=== PATIENT | male | born 1945 | race Caucasian/White ===

== ENCOUNTER → 2023-12-28 14:07 | Outpatient (REF) | payer OTHER, SELFPAY | LOC: RAD 14:07 | PROVIDERS: ATTENDING PHYSICIAN Surgery Vascular Surgery | DX: I70.222 Atherosclerosis of native arteries of extremities with rest pain, left leg (principal); I77.9 Disorder of arteries and arterioles, unspecified | CPT/HCPCS: 93922; 93925; 93970 ==

== ENCOUNTER 2024-01-05 06:13 | Day surgery (SDC) | payer OTHER, SELFPAY ==
[2024-01-05] VITALS (17 sets, daily range): BP systolic 122–186; BP diastolic 72–109; BMI 28.1
[2024-01-05 07:07] LABS: Hematocrit 44.4 % (39.0-52.0); Hemoglobin 14.3 g/dL (13.0-18.0); Mean Corp Hgb Conc. 32.2 g/dL (33.0-37.0); Mean Corpuscular Hgb 29.2 pg (27.0-31.0); Mean Corpuscular Volume 90.6 fL (80.0-94.0); Platelet Count 148 10^3/uL (130-400); Red Cell Dist. Width 14.6 % (11.5-14.5); White Blood Cell Count 6.5 10^3/uL (4.8-10.8)
[2024-01-05 07:19] LABS: Blood Urea Nitrogen 26 mg/dl (9-20); Carbon Dioxide 27 mmol/L (22-30); Chloride 110 mmol/L (98-107); Estimated Creatinine Clearance 42 ml/min; Glucose 94 mg/dl (70-99); INR 1.21; PT 15.2 Sec (11.4-14.6); Potassium 4.5 mmol/L (3.5-5.1); Sodium 144 mmol/L (135-145); eGFR 56.23
[2024-01-05 07:20] LABS: APTT 30.9 Sec (23.4-35.0)
--- NOTE | 2024-01-05 07:37 | W.SUR.PREOP ---
Pre-Operative Surgical Note
-
I have examined this patient prior to the performance of the scheduled procedure.
The patient's condition is unchanged from the time of the current History and
Physical and the patient is able to undergo the scheduled procedure.
--- NOTE | 2024-01-05 11:41 | SUR.PHASEI ---
1125: MD Min made aware of patients slight confusion and bazar behavior. No concerns at this time and gave RN okay to move patient back to Cath area
--- NOTE | 2024-01-05 12:31 | OR.RPT ---
Operative Report
Operative Report
Date of Operation: 01/05/2024
Pre Op Diagnosis: Critical limb threatening ischemia, left lower extremity
Post Op Diagnosis: Critical limb threatening ischemia, left lower extremity
Procedure:
1.) Intravascular lithotripsy to left posterior tibial artery (3 mm x 80 mm E8 Shockwave balloon)
2.) Intravascular lithotripsy to left peroneal artery (3 mm x 80 mm E8 Shockwave balloon)
3.) Balloon angioplasty to left posterior tibial artery (3 mm x 200 mm)
4.) Drug-coated balloon angioplasty to left superficial femoral artery (6 mm x 150 mm Lutonix)
5.) Drug-coated balloon angioplasty to left above-knee popliteal artery (5 mm x 120 mm Lutonix)
6.) Stenting of left superficial femoral artery (6 mm x 100 mm LifeStent)
7.) Diagnostic left lower extremity arteriogram
8.) Ultrasound-guided percutaneous ANTEGRADE access to the left common femoral artery
Surgeon: Osmin Golden III, MD
Anesthesia: Sedation with local
Fluoroscopy:
42 min
69 mGy
15.63 Gy.cm2
Complications: None
Estimated Blood Loss: 30 cc
History and Indications for Procedure: 78-year-old male with critical limb threatening ischemia of his left lower extremity manifested by nonhealing toe wound.
Procedure in Detail: Gerardo Mendoza was correctly identified and placed supine on the operating table. After adequate induction of anesthesia the bilateral groins were prepped and draped in the usual sterile fashion. A timeout was performed with
the nursing and anesthesia staff confirming the patient's identity as well as the nature and laterality of the procedure.
The left common femoral artery was identified under ultrasound guidance. The artery was patent. The superior and inferior aspects of the femoral head were identified with radiographic guidance and marked at the skin level. The proposed puncture site
was infiltrated with local anesthesia. Under ultrasound guidance we accessed the left common femoral artery in an antegrade direction with a micropuncture needle and upsized to a 5 Fr sheath over a Bentson wire.
A diagnostic left lower extremity arteriogram was then performed which demonstrated the following:
LEFT LOWER EXTREMITY:
Common femoral artery: Patent with no significant stenosis identified
Profunda femoral artery: Patent with no significant stenosis identified
Superficial femoral artery: Patent. Scattered areas of focal high-grade stenosis throughout
Popliteal artery: Patent. Moderate to high-grade stenosis identified in the above-knee popliteal artery. Popliteal artery behind the knee and below the knee patent with no significant stenosis identified
Anterior tibial artery: Occluded
Tibioperoneal trunk: Patent.
Peroneal artery: Diffusely diseased with scattered areas of high-grade stenosis and focal occlusion throughout
Posterior tibial artery: Diffusely diseased with scattered areas of high-grade stenosis and focal occlusion throughout
ENDOVASCULAR INTERVENTION: Systemic heparin was administered. Selected the superficial femoral artery and popliteal artery under roadmap guidance with Quickcross catheter and glidewire. Under roadmap guidance I then selected the posterior tibial
artery. The posterior tibial artery disease was crossed with a Quickcross and Glidewire. The wire and catheter were advanced into the distal posterior tibial artery and subtraction angio confirmed proper position in the true lumen. Exchanged out
for a 0.014 wire. Due to the calcified nature of the arterial disease and in an effort to modify the calcium to achieve maximum luminal gain with endovascular intervention I elected to proceed with intravascular lithotripsy. A 3 mm x 80 mm E8
shockwave balloon was placed across the posterior tibial artery disease under roadmap guidance. The catheter was positioned in the distal posterior tibial artery. Alternating rounds of lithotripsy pulse delivery at sub-nominal pressure and
angioplasty at nominal pressure was performed across the entire length of posterior tibial artery disease. In between rounds of pulse delivery and angioplasty the balloon was deflated and repositioned under roadmap guidance. 200 pulses were
delivered across the posterior tibial artery. The remaining 200 pulses were saved for the peroneal artery disease. Subsequent arteriogram demonstrated an excellent technical result but areas of mild to moderate residual stenosis were identified.
I therefore treated the entire posterior tibial artery with a 3 mm x 200 mm angioplasty balloon. Each segment was inflated to nominal pressure and held in place for 2 minutes. Subsequent arteriogram demonstrated an excellent technical result with
a widely patent posterior tibial artery and brisk flow. The posterior tibial artery continued across the ankle into the foot to form plantar branches which continued out to the forefoot.
We then focused our attention on the peroneal artery disease. Under roadmap guidance using a quick cross and Glidewire I selected the peroneal artery. The peroneal artery disease was crossed with this approach. The catheter was advanced to the
distal peroneal artery and subtraction arteriogram confirmed proper position within the distal peroneal artery. A 0.014 wire was placed. The 3 mm E8 shockwave balloon was then readvanced under roadmap guidance and positioned in the distal peroneal
artery. Alternating rounds of lithotripsy pulse delivery at sub-nominal pressure and angioplasty at nominal pressure was performed across the entire length of peroneal artery disease. In between rounds of pulse delivery and angioplasty the balloon
was deflated and repositioned under roadmap guidance. The remaining 200 pulses were delivered across the peroneal artery. Subsequent arteriogram demonstrated an excellent technical result with a widely patent peroneal artery and brisk flow. No
significant residual stenosis was identified. Anterior and posterior branches from the peroneal artery were seen at the ankle and continued into the foot.
Satisfied with this result we then focused our attention on the superficial femoral artery and popliteal artery disease. Through a Quickcross catheter I exchanged out for a Storq wire. The Storq wire was positioned in the popliteal artery behind
the knee. I treated the above-knee popliteal artery disease with a 5 mm x 120 mm Lutonix drug-coated balloon. This was positioned in the desired location under roadmap guidance, inflated to nominal pressure and held in place for 3 minutes.
Subsequent to this I treated the superficial femoral artery disease with a 6 mm x 150 mm Lutonix drug-coated balloon. This was also positioned in the desired location under roadmap guidance, inflated to nominal pressure and held in place for 3
minutes. Subsequent arteriogram demonstrated a nice result with a widely patent superficial femoral artery and popliteal artery. There was an area of dissection noted in the proximal superficial femoral artery that I elected to treat with a stent.
I then upsized to a 6 Libyan sheath. Under roadmap guidance I positioned a 6 mm x 100 mm LifeStent in the desired location in the proximal superficial femoral artery. The stent was deployed without difficulty. The stent was then profiled fully
with a 6 mm angioplasty balloon.
COMPLETION ARTERIOGRAM: Excellent technical result. Significant improvement compared to pretreatment. Widely patent superficial femoral artery and popliteal artery with brisk flow and no significant residual stenosis identified. Widely patent
posterior tibial and peroneal arteries with no significant residual stenosis identified. Significantly improved tibial artery flow compared to pretreatment. Robust flow identified across the ankle and into the foot. Flow identified to the
forefoot mostly via plantar branches.
Satisfied with this result we concluded the procedure. The wire was removed from the 6 Libyan sheath. Protamine was administered. The 6 Libyan sheath was pulled and direct manual pressure was held over the antegrade access site. Hemostasis was
achieved. A sterile dressing was applied.
The patient tolerated the procedure well and was taken to the recovery area in stable condition.
Attestation: I was present and responsible for the entire procedure.
Signed:
Osmin Golden III, MD
[facility]
[phone] (cell)
[2024-01-05] MEDS: PLAVIX 75 MG PO (12:51)
[2024-01-05] MEDS: NSS 500 IV (14:29)
[2024-01-05] MEDS: NSS 1000 IV (14:30)
== END 2024-01-05 17:05 | disposition home or self-care (01) ==
LOC: CATH 06:13
PROVIDERS: ATTENDING PHYSICIAN Surgery Vascular Surgery; FAMILY PHYSICIAN Internal Medicine
DX: I70.229 Atherosclerosis of native arteries of extremities with rest pain, unspecified extremity (principal); I25.10 Atherosclerotic heart disease of native coronary artery without angina pectoris; Z95.5 Presence of coronary angioplasty implant and graft; I12.9 Hypertensive chronic kidney disease with stage 1 through stage 4 chronic kidney disease, or unspecified chronic kidney disease; N18.32 Chronic kidney disease, stage 3b; Z79.01 Long term (current) use of anticoagulants; Z79.02 Long term (current) use of antithrombotics/antiplatelets
CPT/HCPCS: 37226; C9772; 75710; 76937; 80048; 85027; 85610; 85730; C1725; C1769; C1876; C1887; C1894; C2623; Q9967

== ENCOUNTER → 2024-02-04 15:07 | Outpatient (REF) | payer OTHER, SELFPAY | LOC: DHVS 15:07 | PROVIDERS: ATTENDING PHYSICIAN Surgery Vascular Surgery | DX: I77.9 Disorder of arteries and arterioles, unspecified (principal) | CPT/HCPCS: 93922; 93925 ==

== ENCOUNTER → 2024-08-31 14:03 | Outpatient (REF) | payer OTHER, SELFPAY | LOC: RAD 14:03 | PROVIDERS: ATTENDING PHYSICIAN Surgery Vascular Surgery; FAMILY PHYSICIAN Internal Medicine | DX: I73.9 Peripheral vascular disease, unspecified (principal); I70.222 Atherosclerosis of native arteries of extremities with rest pain, left leg | CPT/HCPCS: 93922; 93925 ==

== ENCOUNTER 2024-09-19 10:56 | Day surgery (SDC) | payer OTHER, SELFPAY ==
[2024-09-15 09:31] VITALS: BMI 25.7
[2024-09-15 10:13] LABS: % Basophils 0.5 % (0-2); % Eosinophils 2.7 % (0-6); % Immature Granulocytes 0.2 % (0-0.5); % Lymphocytes 21.8 % (20.5-51.1); % Monocytes 10.6 % (1.7-9.3); % Neutrophils 64.2 % (42.2-75.2); Absolute Eosinophils 0.2 10^3/uL (0-0.7); Absolute Lymphocytes 1.4 10^3/uL (1.2-3.4); Absolute Monocytes 0.7 10^3/uL (0.1-0.6); Absolute Neutrophils 4.1 10^3/uL (1.4-6.5); Hematocrit 48.5 % (39.0-52.0); Hemoglobin 15.2 g/dL (13.0-18.0); Mean Corp Hgb Conc. 31.3 g/dL (33.0-37.0); Mean Corpuscular Hgb 28.6 pg (27.0-31.0); Mean Corpuscular Volume 91.2 fL (80.0-94.0); Mean Platelet Volume 9.5 fL (7.4-10.4); Nucleated Red Blood Cells % 0 % (-); Platelet Count 170 10^3/uL (130-400); Red Blood Cell Count 5.32 10^6/uL (4.70-6.10); Red Cell Dist. Width 15.4 % (11.5-14.5); White Blood Cell Count 6.3 10^3/uL (4.8-10.8)
[2024-09-15 10:19] LABS: INR 1.09; PT 14.6 Sec (11.4-14.6)
[2024-09-15 10:20] LABS: APTT 33.5 Sec (23.4-35.0)
[2024-09-15 11:31] LABS: Blood Urea Nitrogen 24 mg/dl (9-20); Calcium 9.2 mg/dl (8.4-10.2); Carbon Dioxide 26 mmol/L (22-30); Chloride 104 mmol/L (98-107); Estimated Creatinine Clearance 48 ml/min; Glucose 97 mg/dl (70-99); Potassium 4.9 mmol/L (3.5-5.1); Sodium 140 mmol/L (135-145); eGFR 55.88
[2024-09-19] VITALS (22 sets, daily range): BP systolic 105–160; BP diastolic 71–116; BMI 26.8; BMI 25.7
[2024-09-19 11:29] LABS: Hematocrit 49.5 % (39.0-52.0); Hemoglobin 15.5 g/dL (13.0-18.0); Mean Corp Hgb Conc. 31.3 g/dL (33.0-37.0); Mean Corpuscular Hgb 28.7 pg (27.0-31.0); Mean Corpuscular Volume 91.5 fL (80.0-94.0); Mean Platelet Volume 9.1 fL (7.4-10.4); Platelet Count 195 10^3/uL (130-400); Red Blood Cell Count 5.41 10^6/uL (4.70-6.10); Red Cell Dist. Width 15.3 % (11.5-14.5); White Blood Cell Count 6.9 10^3/uL (4.8-10.8)
[2024-09-19 11:40] LABS: INR 1.14; PT 14.9 Sec (11.4-14.6)
[2024-09-19 11:41] LABS: APTT 31.2 Sec (23.4-35.0)
[2024-09-19 11:46] LABS: Blood Urea Nitrogen 26 mg/dl (9-20); Calcium 9.6 mg/dl (8.4-10.2); Carbon Dioxide 28 mmol/L (22-30); Chloride 106 mmol/L (98-107); Estimated Creatinine Clearance 45 ml/min; Glucose 99 mg/dl (70-99); Potassium 4.8 mmol/L (3.5-5.1); Sodium 140 mmol/L (135-145); eGFR 51.13
[2024-09-19] MEDS: NSS 248 ML IV (12:21)
[2024-09-19 15:38] LABS: ACT-LR - POC 308 Seconds (116-155)
--- NOTE | 2024-09-19 16:05 | W.SUR.POST ---
Surgical Immediate Post Op
Note
Pre Op Diagnosis: PAD
Post Op Diagnosis: PAD
Procedure Performed: LLE angio, L SFA stent, L PT shockwave and GUN SEALING MACHINE OPERATOR
Primary Surgeon: Osmin Golden
Secondary Surgeons: Ej Casarez
Anesthesia: see anesthesia flowsheet
Estimated Blood Loss: 2cc
Fluids: see anesthesia flowsheet
Drains/Shunts: none
Specimens/Cultures: none
Doppler/Duplex/Angio (Y/N): y
Complications: none
Operative Findings: LLE angio via L groin antegrade access. Diagnostic angio with dominant L SFA lesion with one vessel runoff via a stenotic L PT. Shockwave and GUN SEALING MACHINE OPERATOR of L PT. L SFA stent. Repeat L PT GUN SEALING MACHINE OPERATOR and tPA thrombolysis of distal L PT. On
completion, LLE SFA patent with good flow and one vessel runoff via L PT. Dopplerable L DP/PT. Sheath to be removed in PACU.
--- NOTE | 2024-09-19 16:48 | OR.RPT ---
Operative Report
Operative Report
Date of Operation: 09/19/2024
Pre Op Diagnosis:
1. Chronic limb threatening ischemia left lower extremity
2. 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
Post Op Diagnosis:
1. Chronic limb threatening ischemia left lower extremity
2. 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
Procedure:
1.) Intravascular lithotripsy to left posterior tibial artery (3 mm x 80 mm E8 shockwave balloon)
2.) Balloon angioplasty and stenting of left superficial femoral artery (6 mm x 100 mm Zilver PTX)
3.) Diagnostic left lower extremity arteriogram
4.) Ultrasound-guided left common femoral artery access, antegrade
Surgeon: Osmin Golden III, MD
Supervisor Paste Mixing: Ej Casarez MD, PGY4
Anesthesia: Sedation with local
Fluoroscopy:
28.8 min
50 mGy
12.79 Gy.cm2
Complications: None
Estimated Blood Loss: 20 cc
History and Indications for Procedure: 79-year-old male with chronic limb threatening ischemia of the left lower extremity manifested by nonhealing left third toe wound
Procedure in Detail: Gerardo Mendoza was correctly identified and placed supine on the operating table. After adequate induction of anesthesia the bilateral groins were prepped and draped in the usual sterile fashion. A timeout was performed with
the nursing and anesthesia staff confirming the patient's identity as well as the nature and laterality of the procedure.
The left common femoral artery was identified under ultrasound guidance. The artery was patent. The superior and inferior aspects of the femoral head were identified with radiographic guidance and marked at the skin level. The proposed puncture site
was infiltrated with local anesthesia. Under ultrasound guidance we accessed the left common femoral artery in an antegrade direction with a micropuncture needle and upsized to a 5 Fr sheath over a Bentson wire. A diagnostic left lower extremity
arteriogram was then performed which demonstrated the following:
LEFT LOWER EXTREMITY:
Superficial femoral artery: Patent. Stent patent with no in-stent restenosis. Distal superficial femoral artery with segmental high-grade stenosis
Popliteal artery: Patent with no significant stenosis identified
Anterior tibial artery: Occluded
Tibioperoneal trunk: Patent
Peroneal artery: Occluded proximally and reconstitutes at the ankle.
Posterior tibial artery: Occluded proximally with sluggish distal reconstitution distally
ENDOVASCULAR INTERVENTION: Systemic heparin was administered. Exchanged out for a 6 Fr sheath over a Exco inTouch wire. Selected the popliteal artery and then the posterior tibial artery under roadmap guidance with Quickcross catheter and glidewire. The
posterior tibial occlusion was crossed. The wire and catheter were advanced into the distal posterior tibial over the calcaneus and subtraction angio confirmed proper position in the true lumen. Exchanged out for a 0.014 wire. Due to the calcified
nature of the posterior tibial artery disease and in an effort to modify the calcium to achieve maximum luminal gain with endovascular intervention I elected to proceed with intravascular lithotripsy. A 3 mm x 80 mm Shockwave balloon was placed
across the stenosis under roadmap guidance. Alternating rounds of lithotripsy pulse delivery at sub-nominal pressure and angioplasty at nominal pressure was performed across the stenosis. In between rounds of pulse delivery and angioplasty the
balloon was deflated and repositioned under roadmap guidance. 240 pulses were delivered across the posterior tibial artery, distal to proximal. Subsequent arteriogram demonstrated a patent posterior tibial artery with residual stenosis remaining.
A 2.5 mm x 220 mm angioplasty balloon then used to treat the entire length of posterior tibial artery from the calcaneus to the PT origin. Each inflation was brought to nominal pressure and held in place for 3 minutes. Subsequent arteriogram
demonstrated significant improvement with good flow through the posterior tibial artery and into the foot. On the distal posterior tibial artery there were 2 small filling defects consistent with thrombus. I then brought a Quickcross catheter over
the 0.014 wire just proximal to these filling defects. I injected 2 mg of tPA directly into the posterior tibial artery just proximal to the filling defects. I then focused my attention on the SFA disease before coming back to the posterior tibial
artery.
Under roadmap guidance I brought into position a 6 mm x 100 mm Zilver PTX stent. This was positioned in the desired location across the superficial femoral artery stenosis and deployed. I postdilated this stent with a 5 mm angioplasty balloon.
Subsequent arteriogram demonstrated an excellent technical result with brisk flow through a widely patent superficial femoral artery and no significant residual stenosis identified.
I then reexamined the posterior tibial artery. The arteriogram demonstrated brisk flow through the posterior tibial artery with an area of residual stenosis at the ankle. Significant improvement was identified in the filling defects previously
seen. I then brought back into position the long 2.5 mm angioplasty balloon. This was placed across the residual stenosis at the ankle and inflated to nominal pressure. The balloon was held in place for 3-minute inflation and then slowly deflated
and removed over the wire.
Subsequent arteriogram demonstrated significant improvement. There was brisk flow through the posterior tibial artery and into the plantar branches with no significant residual stenosis identified. Flow to the forefoot was identified. There was
distal reconstitution of the peroneal artery but there did not appear to be any meaningful branch flow from it at the ankle into the foot.
Satisfied with this result we concluded the procedure. Protamine was administered. The sheath was secured in place with the plan to pull it in the recovery area.
The patient tolerated the procedure well and was taken to the recovery area in stable condition.
Attestation: I was present and responsible for the entire procedure.
Signed:
Osmin Golden III, MD
[facility]
[phone] (fptn)
[2024-09-19] MEDS: NSS 1000 IV (18:14)
--- NOTE | 2024-09-19 20:00 | PTCARENOTE ---
Assumed care of pt at 1915 following shift report. Continued post angiography/cathlab flowsheet and neurovascular checks at Q1x4. Pt still bedrest and used language line to communicate with pt when allowed to ambulate. Pt oriented to room. Call vernon
within reach. Care ongoing.
[2024-09-20 03:05] VITALS: BP 127/66
[2024-09-20] MEDS: NSS 1000 IV (06:17)
[2024-09-20 06:19] VITALS: BMI 26.8
[2024-09-20 07:30] VITALS: BP 129/67
[2024-09-20] MEDS: ZEBETA 5 MG PO (08:28)
[2024-09-20] MEDS: PLAVIX 75 MG PO (08:29)
[2024-09-20] MEDS: CRESTOR 10 MG PO (08:29)
[2024-09-20] MEDS: ZESTRIL 20 MG PO (08:29)
[2024-09-20] MEDS: ELIQUIS 5 MG PO (08:29)
--- NOTE | 2024-09-20 09:01 | W.PN.VS ---
Today's Communication / Plan
-
See below.
Assessment/Plan
-
Assessment: 79-year-old male POD #1 Intravascular lithotripsy to left posterior tibial artery (3 mm x 80 mm E8 shockwave balloon), balloon angioplasty and stenting of left superficial femoral artery (6 mm x 100 mm Zilver PTX), Diagnostic left lower
extremity arteriogram, Ultrasound-guided left common femoral artery access, antegrade
Plan:
Patient can continue home anticoagulation today
Follow-up in office in 3 to 4 weeks with repeat ultrasound, both ultrasound and follow-up appointment placed in DC instructions
Discharge
Subjective Data
-
Date of Service: September 20, 2024
Patient offers no complaints, denies pain or swelling at left puncture site.
Objective Data
-
Vital Signs
Temp Pulse Resp BP Pulse Ox
97.4 F 67 16 129/67 97
09/20/24 07:30 09/20/24 08:28 09/20/24 07:30 09/20/24 08:28 09/20/24 07:30
Intake and Output
09/19/24 09/20/24 09/21/24
06:59 06:59 06:59
Intake Total 2007
Output Total 400 / 400
Balance 1608 / 1608
Intake:
Oral fluids 750 / 750
IV fluids (Total) 1258 / 1258
Normosol 50 / 50
Output:
Urine, Voided 400 / 400
Lab Results
09/19/24 11:12
09/19/24 11:12
Calcium 9.6 mg/dl (8.4-10.2) 09/19/24 11:12
Physical Exam
-
No apparent distress, resting bed comfortably
No tachycardia
No dyspnea on room air
ABD nontender, nondistended
Left groin puncture site CDI, no evidence of hematoma or edema, all surrounding compartments soft
Bilateral PT Doppler signal, bilateral feet warm
--- NOTE | 2024-09-20 10:39 | CM ---
Met with pt at bedside. Stock Shaper Kadi [id number]
IA completed. Pt lives with his son and family in a 2 story home
Independent with ADL's, ambulation
DME - none
SNF/HH - denies past hx
Has ride at d/c
PCP - Kev Arguelles
Pharm - [facility]
Plan - anticipate home no needs
[2024-09-20 10:44] VITALS: BP 128/64
--- NOTE | 2024-09-20 11:00 | PTCARENOTE ---
discharge medications and instructions reviewed with pt and son using video specialist
--- NOTE | 2024-09-20 12:22 | W.DS.TRANS ---
DC Summary - Nurse Licensed Practical
-
Discharge Instructions:
Sleep Apnea Risk Intermediate
Discharge Diagnosis/Procedures Left superficial femoral artery balloon
angioplasty/stent placement, left posterior
tibial intravascular lithotripsy
Diet As tolerated
Activity No strenuous activity
Driving Restrictions No driving for 24 hours
Bathing Restrictions OK to Shower
Others Tests Ultrasound: 10/13/24 at 9am here at [place]
[facility]
Instructions:
Stand-Alone Forms: DC Instr - Vascular OR
Changes to Home Medications: No
Discharge Medications:
DC Medications w/original date entered in [employer]
apixaban 5 mg tablet (Eliquis) 5 mg PO BID Blood clot prevention/tx 10/17/22
clopidogrel 75 mg tablet 75 mg PO DAILY #90 tabs 10/17/22
bisoprolol fumarate 5 mg tablet 5 mg PO DAILY 12/29/23
rosuvastatin 10 mg tablet 10 mg PO DAILY 12/29/23
acetaminophen 650 mg tablet,extended release (Tylenol Arthritis Pain) 1,300 mg PO Q12H 09/19/24
perindopril erbumine 8 mg tablet 8 mg PO DAILY Blood pressure #90 tabs 09/19/24
Home Medication Changes
Pending Results: No
== END 2024-09-20 11:19 | disposition home or self-care (01) ==
LOC: CATH 10:56
PROVIDERS: ATTENDING PHYSICIAN Surgery Vascular Surgery; OTHER PHYSICIAN Internal Medicine Cardiovascular Disease; PRIMARYCARE PHYSICIAN Internal Medicine
DX: I70.245 Atherosclerosis of native arteries of left leg with ulceration of other part of foot (principal); L97.529 Non-pressure chronic ulcer of other part of left foot with unspecified severity; I10 Essential (primary) hypertension; F17.210 Nicotine dependence, cigarettes, uncomplicated; Z79.01 Long term (current) use of anticoagulants; Z79.899 Other long term (current) drug therapy; Z79.02 Long term (current) use of antithrombotics/antiplatelets
CPT/HCPCS: 37226; C9772; 36415; 75710; 80048; 85025; 85027; 85610; 85730; 93005; C1725; C1769; C1874; C1894; J2997; Q9967

== ENCOUNTER → 2024-10-13 09:17 | Outpatient (REF) | payer OTHER, SELFPAY | LOC: RAD 09:17 | PROVIDERS: ATTENDING PHYSICIAN Surgery Vascular Surgery; FAMILY PHYSICIAN Internal Medicine | DX: I77.9 Disorder of arteries and arterioles, unspecified (principal) | CPT/HCPCS: 93922; 93925 ==

== ENCOUNTER → 2025-06-27 14:15 | Outpatient (REF) | payer OTHER, SELFPAY | LOC: RAD 14:15 | PROVIDERS: ATTENDING PHYSICIAN Physician Assistant; FAMILY PHYSICIAN Internal Medicine | DX: I77.9 Disorder of arteries and arterioles, unspecified (principal) | CPT/HCPCS: 93922; 93925 ==

== ENCOUNTER 2025-07-04 00:56 | Inpatient (IN) | payer OTHER, SELFPAY ==
[2025-07-03 18:53] VITALS: BP 180/103
[2025-07-03 19:29] LABS: Hematocrit 44.0 % (39.0-52.0); Hemoglobin 13.8 g/dL (13.0-18.0); Mean Corp Hgb Conc. 31.4 g/dL (33.0-37.0); Mean Corpuscular Volume 91.5 fL (80.0-94.0); Nucleated Red Blood Cells % 0 % (-); Platelet Count 178 10^3/uL (130-400); Red Cell Dist. Width 14.6 % (11.5-14.5)
[2025-07-03 19:50] LABS: ALT (SGPT) 23 U/L (0-50); AST (SGOT) 28 U/L (17-59); Albumin 3.8 g/dl (3.5-5.0); Alkaline Phosphatase 85 U/L (38-126); Blood Urea Nitrogen 28 mg/dl (9-20); Calcium 8.6 mg/dl (8.4-10.2); Carbon Dioxide 26 mmol/L (22-30); Chloride 103 mmol/L (98-107); Glucose 115 mg/dl (70-99); Potassium 4.6 mmol/L (3.5-5.1); Sodium 136 mmol/L (135-145); Total Protein 7.0 g/dl (6.3-8.2); eGFR > 60.00
[2025-07-03 20:02] LABS: Troponin I < 0.012 ng/ml
[2025-07-03 22:24] VITALS: BP 174/89
[2025-07-03 23:00] VITALS: BP 155/74
[2025-07-03 23:09] LABS: COVID-19 Antigen Negative (Negative)
[2025-07-03 23:41] VITALS: BMI 25.4
--- NOTE | 2025-07-03 23:42 | ED.GENMED ---
History of Present Illness
General
Chief Complaint: Cough
Source: patient
Time Seen by Provider: 07/03/25 22:02
History of Present Illness
History of Present Illness:
80-year-old male with history of A-fib, peripheral arterial disease, myocardial infarction hypertension presents with increasing cough shortness of breath and fatigue over the past several days. He also notes night sweats. He notes the cough and
shortness of breath is made worse if he lays flat and is improved sitting up. No known weight gain. No vomiting. He is companied by his family. I also spoke with the son over the telephone who helped translate. Patient is Setswana speaking
Phy Exam
Physical Exam
Physical Exam:
General: Well-appearing nontoxic male no acute respiratory distress
HEENT: Normal cephalic no trismus or drooling heart: Irregular rate and rhythm
Lungs: Rales at the bases
Abdomen is soft nontender
Extremities: No cyanosis
Skin: Warm no rash
Course
Orders/Labs/Results
Orders:
Orders
07/03/25 18:59
Electrocardiogram (*1) Urgent
Reason for Study: Other
Other Reason for Exam: Respiratory Distress
Cardiac Monitoring- Treatment ONCE
EKG- Treatment ONCE
IV Insert/Care/Rem.- Treatment PRN
CR Chest - 2 Views Urgent
Comment:
Reason For Exam: respiratory distress
O2 Therapy [RESP] Urgent
Titrate/Wean O2 to maintain O2 sat greater than (%): 93
Special Instructions: TO MAINTAIN CONTINUOUS O2 SATS >/= 93%
Pulse Ox/cont/shift [RESP] Urgent
Quantity: 1
Special Instructions: continuous pulse ox
07/03/25 19:17
BNP [NT-proBNP] Urgent
Complete Blood Count/With Diff Urgent
Comprehensive Metabolic Panel Urgent
Troponin I Urgent
07/03/25 22:39
COVID-19 Antigen Urgent
Source: Nasal Swab
Influenza A+B Rapid Molecular Urgent
HAYDEN Source: Nasal Swab
Specimen Description:
07/04/25 00:10
Furosemide [Lasix] 40 mg IV NOW STA
Abnormal Lab Results
07/03/25
19:17
MCHC 31.4 L g/dL
(33.0-37.0)
RDW 14.6 H %
(11.5-14.5)
Absolute Neuts (auto) 7.2 H 10^3/uL
(1.4-6.5)
Absolute Lymphs (auto) 1.0 L 10^3/uL
(1.2-3.4)
Absolute Monos (auto) 1.0 H 10^3/uL
(0.1-0.6)
Neutrophils % 77.4 H %
(42.2-75.2)
Lymphocytes % 10.8 L %
(20.5-51.1)
Monocytes % 10.7 H %
(1.7-9.3)
BUN 28 H mg/dl
(9-20)
Glucose 115 H mg/dl
(70-99)
07/03/25 19:17
07/03/25 19:17
Vital Signs
Initial and Last Documented VS:
Initial Vital Signs
Temp Pulse Resp BP Pulse Ox
97.7 F 91 18 180/103 98
07/03/25 18:53 07/03/25 18:53 07/03/25 18:53 07/03/25 18:53 07/03/25 18:53
Last Documented Vital Signs
Temp Pulse Resp BP Pulse Ox
97.7 F 96 27 174/89 97
07/03/25 18:53 07/03/25 22:24 07/03/25 22:24 07/03/25 22:24 07/03/25 23:47
MDM/Problems Addressed
Differential Diagnosis Includes:
Patient with short of breath cough and night sweats. Consider pneumonia versus CHF versus viral illness such as COVID or flu
COVID and flu are negative. White count normal no fever here. Chest x-ray shows ground glass opacity in the right upper and lower lobes with possibilities including infectious pneumonia versus pulmonary edema. The BNP is quite elevated.
Echocardiogram performed 5 days ago showed ejection fraction of 45%. I favor CHF more likely as a cause of his presentation given lack of fever and normal white count. Will plan on admitting. Discussed with ED attending.
*Pulse Oximetry
SaO2: 97
Oxygen Mode of Delivery: Room air
Patient hypoxic: no
*Critical Care Note
Total Time (30-74mins, 75-104mins- exclusive of procedures): Not Applicable
ED Attending Note
-
Portions of this chart may have been created with voice recognition software.� Occasional wrong word or��sound alike� substitutions may have occurred due to the inherent limitations of voice recognition software.
Discharge Plan
Departure
Patient Disposition: Admit
Date of Disposition: 07/04/25
Time of Disposition: 00:11
Presentation/result/management discussed w/ accepting MD/DO: Hospitalist
Discharge Problem:
CHF (congestive heart failure)
Prescriptions:
No Action
Eliquis 5 mg Tablet
5 mg PO BID
clopidogrel 75 mg Tablet
75 mg PO DAILY Qty: 90 3RF
bisoprolol fumarate 5 mg Tablet
5 mg PO DAILY
rosuvastatin 10 mg Tablet
10 mg PO DAILY
acetaminophen [Tylenol Arthritis Pain] 650 mg Tablet Extended Release
1,300 mg PO Q12H
perindopril erbumine 8 mg Tablet
8 mg PO DAILY Qty: 90 0RF
Rx Instructions:
3 weeks ago
Referrals:
UNKNOWN - PT DOES,NOT KNOW [Family Provider]
Interventions
Interventions:
*General Assessment Last Done: 07/03/25 18:53
*Neglect/Abuse Screening Last Done: 07/03/25 18:53
[facility] Fall Risk Assessment Tool Last Done: 07/03/25 23:22
*Risk Screen - Suicide (C-SSRS) Last Done: 07/03/25 18:58
ED- Pulmonary Assessment Last Done: 07/03/25 23:23
Discharge Date and Time
Print Language: Welsh
[2025-07-04] VITALS (9 sets, daily range): BP systolic 118–161; BP diastolic 54–93; BMI 23.8
--- NOTE | 2025-07-04 00:16 | HPS.HSE ---
Family Physician
-
Family Physician: NOT KNOW UNKNOWN - PT DOES
Chief Complaint
-
Cough
History of Present Illness
Patient is a 80-year-old Martiniquais speaking male (family interpreted) with past medical history significant for atrial fibrillation on anticoagulation, hypertension, CAD status post prior PCI, peripheral arterial disease status post 2 arterial
revascularization procedure with lithotripsy to the left posterior tibial artery, presents emergency department with weakness cough and sweats.
Family and patient reports symptoms have been worse in the last 3 days. He reports cough that is productive of whitish and greenish phlegm, and his cough is worse when he lays down to sleep at night and he coughs throughout the night.-Reports that
he has problems of this cough which prevents him from sleeping. He also reports generalized aches and pains noting pain in his right chest his abdomen as well as his bilateral lower extremities. He denies having any fevers. He denies having any
chills. He has no known sick contacts and he has no recent travels.
He had a follow-up echocardiogram on June 28 which showed mildly reduced EF with an LVEF of 45% which is similar to his prior echo. No new valvular abnormalities noted. Diastolic dysfunction could not be assessed due to atrial fibrillation.
Suggestion for inferolateral hypokinesis, suboptimally visualized.
In the Emergency Department patient was afebrile, blood pressure was 175/90 with a pulse of 96 and oxygen saturation of 97% on room air. His ECG shows atrial fibrillation at a rate of [address] or T wave changes. Troponin was
negative. BNP was elevated at 6970. Chest x-ray shows ground glass opacities in the right upper and lower lobes consistent with infection versus alveolar pulmonary edema.
CBC was unremarkable. Electrolyte BUN/creatinine were all in the normal range.
Medical History
Past Medical History
Past Medical History: Reports Arrhythmia (Proximal atrial fibrillation), CAD (Status post PCI), HTN, Hypercholesterolemia and Other (Peripheral arterial disease status post stenting)
Past Surgical History: Reports Other ( Intravascular lithotripsy to left posterior tibial artery, left lower extremity arteriogram (Dr. Golden) 09/19/2024 )
Social History
Tobacco: Non-smoker
Alcohol: None
Drug: None
Personal:
Living: With Family
Employment: Retired
Family History
Family History: Not pertinent
Allergies / Home Medications
Allergies reflects when Allergies were last updated in [employer].
Home Medications with original date entered in [employer]
Allergy/Medication List:
Allergies
Allergy/AdvReac Type Severity Reaction Status Date / Time
No Known Allergies Allergy Verified 07/03/25 18:53
Home Medications
apixaban 5 mg tablet (Eliquis) 5 mg PO BID Blood clot prevention/tx 10/17/22
clopidogrel 75 mg tablet 75 mg PO DAILY #90 tabs 10/17/22
bisoprolol fumarate 5 mg tablet 5 mg PO DAILY 12/29/23
rosuvastatin 10 mg tablet 10 mg PO DAILY 12/29/23
acetaminophen 650 mg tablet,extended release (Tylenol Arthritis Pain) 1,300 mg PO Q12H 09/19/24
perindopril erbumine 8 mg tablet 8 mg PO DAILY Blood pressure #90 tabs 09/19/24
Review of Systems
-
Constitutional: Reports No Symptoms
EENT: Reports No Symptoms
Respiratory: Reports Cough and Trouble Breathing
Cardiac: Reports Chest Pain
Abdomen/GI: Reports No Symptoms
: Reports No Symptoms
Musculoskeletal: Reports No Symptoms
Skin: Reports No Symptoms
Neurological: Reports No Symptoms
Endocrine: Reports No Symptoms
Hematologic/Lymphatic: Reports No Symptoms
Psych: Reports No Symptoms
Physical Exam
Vital Signs
Vital Signs
Temp Pulse Resp BP Pulse Ox
97.7 F 96 27 174/89 97
07/03/25 18:53 07/03/25 22:24 07/03/25 22:24 07/03/25 22:24 07/03/25 23:47
Physical Exam
General: Well Developed, Well Nourished and No Apparent Distress
HEENT: NormoCephalic, Moist mucous membranes and Atraumatic
Respiratory: Crackles and Accessory Resp Muscle Use; No Wheezes or Non Labored Respirations
Cardiac: S1/S2 and Irregular Rhythm; No Murmur or Rub
GI: Soft, Non Tender, Non Distended and Normal Bowel Sounds; No Organomegaly
Rectal: Deferred by Provider
Musculoskeletal: No Clubbing, No Cyanosis and No Edema
Skin: No Rash
Neuro: AO x 3 and Nonfocal/grossly intact
Laboratory Results
-
07/03/25 19:17
07/03/25 19:17
Laboratory Results
Total Bilirubin 0.8 mg/dl (0.2-1.3) 07/03/25 19:17
AST 28 U/L (17-59) 07/03/25 19:17
ALT 23 U/L (0-50) 07/03/25 19:17
Alkaline Phosphatase 85 U/L (38-126) 07/03/25 19:17
Troponin I < 0.012 ng/ml 07/03/25 19:17
Data Reviewed
-
Diagnostic Radiology: Image Personally Visualized and interpreted and Report Reviewed by me
Medical Tests (Nuc Med, Echo, EKG etc): Image Personally Visualized and interpreted
Lab Data: Labs Reviewed by me
Impression/Plan
-
IMPRESSION:
80-year-old with history of atrial fibrillation, mildly depressed EF of around 45%, peripheral arterial disease status post revascularization with lithotripsy and stenting, CAD status post stenting, no history of diabetes who presented Emergency
Department with 3 days of worsening shortness of breath especially at night. Is not hypoxic but does seem to have increased work of breathing. No fevers chills and and no evidence of an acute viral infection with negative COVID and flu test and no
known sick contacts. X-ray did show opacities in the right upper and right lower lobe which could be pulmonary edema versus infection. There is no leukocytosis. Patient has been afebrile. He has elevated BNP and mildly elevated JVD but no
peripheral edema. Is in atrial fibrillation and similar to prior. Although the picture is consistent with CHF cannot rule out atypical infection at this time.
PLAN:
CHF exacerbation
- Admit to telemetry
� Lasix 40 mg IV twice daily
� No repeat echo at this time given recent echo in June 28
� There is still concern for infection, will check procalcitonin
� Will start on IV azithromycin pending results of the Pro-Terence
� Nebs as needed
Atrial fibrillation�rate controlled atrial fibrillation
� Continue beta-jennie with bisoprolol equivalent
� Continue Eliquis 5 mg twice daily
CAD/PAD
� Continue Eliquis, Plavix and statin
� Continue RICHELLE inhibitor with perindopril equivalent
Hypertension
� Stable, continue perindopril equivalent
DVT prophylaxis�on apixaban
CODE STATUS�full code
[2025-07-04] MEDS: LASIX 40 MG IV ×2 (00:23→09:03)
[2025-07-04] MEDS: ZITHROMAX INFUSION 250 IV (01:00)
[2025-07-04] MEDS: ROBITUSSIN AC 10 ML PO (01:00)
[2025-07-04] MEDS: DUONEB 3 ML INH (01:00)
[2025-07-04 01:48] LABS: Procalcitonin 0.48 ng/ml (0.0-0.25)
--- NOTE | 2025-07-04 02:30 | PTCARENOTE ---
Pt transferred to unit from ED via stretcher. Pt ambulated from stretcher to unit bed with x1 assist and pt's own single point cane. VSS. Pt speaks Tristanian-- language line obtained. No answer on the Tristanian line after multiple attempts. at
bedside-- speaks Tristanian & Vietnamese. Admission questions/ assessment completed using Vietnamese language line to communicate answers from to . Pt A & O x 3. Bed alarm activated. Pt and oriented to room. Call vernon within reach.
[2025-07-04] MEDS: ROBITUSSIN DM 5 ML PO ×2 (03:23→09:02)
[2025-07-04 08:08] LABS: Hematocrit 40.5 % (39.0-52.0); Hemoglobin 13.1 g/dL (13.0-18.0); Mean Corp Hgb Conc. 32.3 g/dL (33.0-37.0); Mean Corpuscular Volume 90.0 fL (80.0-94.0); Platelet Count 177 10^3/uL (130-400); Red Cell Dist. Width 14.7 % (11.5-14.5)
[2025-07-04 08:39] LABS: Blood Urea Nitrogen 25 mg/dl (9-20); Calcium 8.7 mg/dl (8.4-10.2); Carbon Dioxide 25 mmol/L (22-30); Chloride 103 mmol/L (98-107); Estimated Creatinine Clearance 50 ml/min; Glucose 100 mg/dl (70-99); Magnesium 2.0 mg/dl (1.6-2.3); Potassium 4.3 mmol/L (3.5-5.1); Sodium 139 mmol/L (135-145); eGFR 55.53
--- NOTE | 2025-07-04 08:54 | CON.CAR ---
Consultation
Consultation Request
Date/Time Consultation Requested: 07/04/25, 7am
Date/Time Consultation Performed: 07/04/25, 830am
Requesting Provider: Katarzyna
Performing Provider: Aiyana
Reason for Consultation: SOB, cough
Medical History
-
Chief Complaint: cough, SOB
History of Present Illness:
80 yo male with PMH of permanent A fib on eliquis, ICM EF 45-50%, mild/mod MR, CAD s/p LAD stent 2022, complex PAD, last intervention 09/2024, HTN, hyperlipidemia, tobacco abuse admitted with SOB, orthopnea, cough.
Past Medical History
Past Medical History: Arrhythmias (permanent A fib), CAD, HTN, PR, Renal Failure (CKD3a), Valvular Disease (mild/mod MR) and Other (ICM EF 45-50%)
Past Surgical History: Cardiac (LAD stent 2022)
Social History
Tobacco: Smoker
Family History
Family History: Hypertension
Allergies / Home Medications
Allergy/AdvReac Type Severity Reaction Status Date / Time
No Known Allergies Allergy Verified 07/03/25 18:53
�Medication �Instructions �Recorded �Confirmed �Type
apixaban 5 mg tablet (Eliquis) 5 mg PO BID Blood clot 10/17/22 09/19/24 History
prevention/tx
clopidogrel 75 mg tablet 75 mg PO DAILY #90 tabs 10/17/22 09/19/24 Rx
bisoprolol fumarate 5 mg tablet 5 mg PO DAILY 12/29/23 09/19/24 History
rosuvastatin 10 mg tablet 10 mg PO DAILY 12/29/23 09/19/24 History
acetaminophen 650 mg 1,300 mg PO Q12H 09/19/24 09/19/24 History
tablet,extended release (Tylenol
Arthritis Pain)
perindopril erbumine 8 mg tablet 8 mg PO DAILY Blood pressure #90 09/19/24 09/19/24 Rx
tabs
Review of Systems
-
History Source: Patient
Constitutional: Fatigue
Respiratory: Cough and Trouble Breathing
Physical Exam
Vital Signs
Temp Pulse Resp BP Pulse Ox
100.2 F 95 18 161/90 95
07/04/25 07:52 07/04/25 07:52 07/04/25 07:52 07/04/25 07:52 07/04/25 07:52
Lab Results
07/04/25 07:32
07/04/25 07:32
Troponin I < 0.012 ng/ml 07/03/25 19:17
Brv-Y-Iycjbfdabua Pept 6970 pg/ml 07/03/25 19:17
Physical Exam
General: Well Developed and Well Nourished
HEENT: Normocephalic and Anicteric
Respiratory: Accessory Resp Muscle Use
Cardiac: S1/S2 (normal), Irregular Rhythm, Murmur (none), Peripheral Edema (none) and JVD (none)
Musculoskeletal: No Clubbing and No Cyanosis
Skin: Warm and Dry
Neuro: Alert
Psych: Calm
Impression / Plan
-
80 yo male with PMH of permanent A fib on eliquis, ICM EF 45-50%, mild/mod MR, CAD s/p LAD stent 2022, complex PAD, last intervention 09/2024, HTN, hyperlipidemia, tobacco abuse admitted with SOB, orthopnea, cough.
# SOB: likely multifactorial
-with low grade temp, elevated procal: being treated for respiratory infection with Abx
-we are consulted for HF
# Acute HFmEF
-was given IV lasix on arrival with concern for severe HF: this requires close monitoring of labs/tele
-ICM with EF 45-50%, mild/mod MR (echo 06/28/25)
-outpatient regimen includes bisoprolol, perindopril; not on diuretic
-unclear dry weight
-now with fever, and n/v: will hold additional diuretic and re-assess in AM
-case mgmt c/s for SGLT2i: Farxiga is $10 per month if needed
# CAD and PAD: complex
-LAD stent 2022, and recent PAD intervention 09/2024
-trop <0.012
-continue outpatient regimen of eliquis/Plavix
# Permanent A fib
-continue eliquis and bisprolol
# CKD3a
-Cr 1.3: trend with diuresis
# Tobacco abuse
-counseled for cessation
Data Reviewed
-
EKG: Tracing Personally Visualized and interpreted (A fib 91)
Medical Tests (Nuc Med, Echo etc): Report Reviewed by me (echo per note)
Labs: Labs Reviewed by me
[2025-07-04] MEDS: ZEBETA 2.5 MG PO (09:01)
[2025-07-04] MEDS: CRESTOR 10 MG PO (09:02)
[2025-07-04] MEDS: PLAVIX 75 MG PO (09:02)
[2025-07-04] MEDS: ROCEPHIN 1000 MG IV (09:02)
[2025-07-04] MEDS: STERILE WATER FOR INJECTION 10 ML IV (09:02)
[2025-07-04] MEDS: ZESTRIL 20 MG PO (09:03)
[2025-07-04] MEDS: ELIQUIS 5 MG PO ×2 (09:03→20:25)
[2025-07-04] MEDS: TYLENOL 650 MG PO (09:04)
--- NOTE | 2025-07-04 09:56 | CM ---
CM consult for med pricing
Call to [facility] [phone]
Farxiga 10 mg
30 day retail- $10.23
90 day [facility]- $25.94
Jardiance 10 mg
30 day retail- $11.99
90 day [facility]- $31.01
Update to cardio
--- NOTE | 2025-07-04 14:30 | W.PN.UPDATE ---
Update Note
Progress Note Update
Patient seen and examined after postmidnight admission. Currently with cough. Vital signs stable noting Tmax of 100.2 �F no acute distress, awake and alert. Irregular irregular rhythm, normal rate. Slightly decreased BS in the R hemithorax.
Chest x-ray reviewed. The overall clinical picture is that of pneumonia and not congestive heart failure. Agree with holding IV antibiotics. Rocephin has been added to azithromycin. Check chest x-ray tomorrow.
--- NOTE | 2025-07-04 15:09 | CM ---
CM spoke with son/Luis
Pt is Uzbeki speaking and resides with his son in a 2SH with 3 [address], full flight to 2nd floor
Pt is independent with ambulation and his ADLs with use of a WW, AxO and no cognition issues per son
No home O2 , neb or cpap
Pt insured through [employer] and does not have Medicare
PCP- Juan Diego Norris
Rx- [facility]
Discharge Disposition- anticipate home, follow for needs
[2025-07-05] MEDS: ZITHROMAX INFUSION 250 IV (00:40)
[2025-07-05 03:05] VITALS: BP 128/64
[2025-07-05] MEDS: ROBITUSSIN DM 5 ML PO (04:53)
[2025-07-05 05:02] VITALS: BMI 23.8
--- NOTE | 2025-07-05 07:44 | W.PN.CD ---
Addendum entered and electronically signed by Ruslan Morales MD 07/05/25 09:47:
Patient seen and evaluated in collaboration with DATABASE SOFTWARE TECHNICIAN; agree with below.
- Permanent A-fib, EF 45-50%, mild to moderate MR, CAD, PAD, hypertension, hyperlipidemia, chronic tobacco use.
- Suspected URI/PNA; management as per primary Hospitalist team.
- Recommend placing the patient on a standing diuretic as outpatient; will start Lasix 20 mg daily.
- Start Farxiga PO, which should be affordable for him.
- Outpatient follow-up with Cardiology.
Original Note:
Today's Communication / Plan
-
Shortness of breath appears to be in the setting of PNA.
Treatment of PNA per hospitalist. Discussed with Dr. Colón.
He should be on Farxiga for his mildly reduced ejection fraction.
Impression / Plan
-
I/P: 80M with PMH of permanent A fib on eliquis, ICM EF 45-50%, mild/mod MR, CAD s/p LAD stent 2022, complex PAD, last intervention 09/2024, HTN, hyperlipidemia, tobacco abuse admitted with SOB, orthopnea, cough.
# SOB, in the setting of PNA
-with low grade temp, elevated procal: being treated for respiratory infection with Abx
# HFmEF, chronic
-was given IV lasix on arrival with concern for severe HF: this requires close monitoring of labs/tele
-ICM with EF 45-50%, mild/mod MR (echo 06/28/25)
-outpatient regimen includes bisoprolol, perindopril; not on a standing diuretic in the outpatient setting
-He does not appear grossly volume overloaded
-case mgmt c/s for SGLT2i: Farxiga is $10 per month if needed, this will be added for GDMT
# CAD and PAD: complex
-LAD stent 2022, and recent PAD intervention 09/2024
-trop <0.012
-continue outpatient regimen of Eliquis/Plavix
# Permanent A fib
-continue Eliquis and bisoprolol
# CKD3a
-Cr 1.3: trend with diuresis
# Tobacco abuse
-counseled for cessation
Physical Exam
Vital Signs/Labs
Vital Signs
Temp Pulse Resp BP Pulse Ox
98.5 F 83 16 128/64 96
07/05/25 03:05 07/05/25 03:05 07/05/25 03:05 07/05/25 03:05 07/05/25 03:05
07/04/25 07/05/25 07/06/25
06:59 06:59 06:59
Actual Weight 175 lb 6 oz 175 lb 6 oz
Magnesium 2.0 mg/dl (1.6-2.3) 07/04/25 07:32
07/03/25
19:17
Vab-B-Sykbinobjaz Pept 6970
LAB Results
07/03/25
19:17
Troponin I < 0.012
Physical Exam
Constitutional: No acute distress and Comfortable
EENT: Anicteric and Moist mucous membranes
Cardiovascular: Rhythm/rate is irregular and S1S2 is normal
Respiratory: Respiratory effort normal
GI: Soft, Distention absent, Flat, Non tender and Normal bowel sounds
Neuro/Psych: Alert and Oriented
Other: Skin (Warm and dry)
Data Reviewed
-
Date of Service: July 05, 2025
[2025-07-05 07:47] VITALS: BP 126/69
[2025-07-05 08:53] LABS: Hematocrit 43.2 % (39.0-52.0); Hemoglobin 13.7 g/dL (13.0-18.0); Mean Corp Hgb Conc. 31.7 g/dL (33.0-37.0); Mean Corpuscular Volume 90.2 fL (80.0-94.0); Platelet Count 191 10^3/uL (130-400); Red Cell Dist. Width 14.6 % (11.5-14.5)
[2025-07-05 09:35] LABS: Blood Urea Nitrogen 29 mg/dl (9-20); Calcium 8.7 mg/dl (8.4-10.2); Carbon Dioxide 24 mmol/L (22-30); Chloride 103 mmol/L (98-107); Estimated Creatinine Clearance 46 ml/min; Glucose 86 mg/dl (70-99); Potassium 4.1 mmol/L (3.5-5.1); Sodium 138 mmol/L (135-145); eGFR 50.81
[2025-07-05] MEDS: ZESTRIL 20 MG PO (10:06)
[2025-07-05] MEDS: PLAVIX 75 MG PO (10:06)
[2025-07-05] MEDS: ELIQUIS 5 MG PO (10:06)
[2025-07-05] MEDS: ZEBETA 2.5 MG PO (10:06)
[2025-07-05] MEDS: STERILE WATER FOR INJECTION 10 ML IV (10:07)
[2025-07-05] MEDS: FARXIGA 10 MG PO (10:07)
[2025-07-05] MEDS: ROCEPHIN 1000 MG IV (10:08)
[2025-07-05] MEDS: CRESTOR 10 MG PO (10:08)
[2025-07-05] MEDS: LASIX 20 MG PO (10:13)
--- NOTE | 2025-07-05 10:39 | W.PN.HOSP.TC ---
Today's Communication/Plan
-
d/c
Assessment / Plan
Assessment / Plan
Gen: NAD, AAOx3.
Eyes: EOMI, PERRLA, no scleral icterus.
Neck: supple.
CV: Irregularly irregular, +S1/S2, no m/r/g.
Resp: Slightly decreased breath sounds in the right hemithorax
Abd: +BS, soft, NT, ND
Skin: No rashes.
Neuro: CN 2-12 intact, non-focal.
Psych: Normal mood and affect.
CXR 07/03:
1. Mild ground-glass opacity in the right upper and lower lobes. Diagnostic possibilities are (1) infectious pneumonia or (2) mild alveolar pulmonary edema.
2. Mild to moderate cardiomegaly.
CXR 07/05: Improving right lung pneumonia.
Acute R-sided PNA:
-improving on imaging
-COVID/Flu NEG, Legionella and streptococcal urinary antigens negative
-no leukocytosis, currently afebrile, saturating well on RA
-has been on Rocephin/Azithro
-d/c on Augmentin/Doxy
Other problems:
Essential HTN: cont BB/ACEi
CAD and PAD: cont BB/statin/plavix
CKD3a
Tobacco abuse disorder: Encourage smoking cessation
Permanent atrial fibrillation: Cont BB/Eliquis
Chronic HFmrEF: Acute CHF Exac has been ruled out. Cont Lasix/Fargixa
Total time spent on d/c = 40 min. This included today's physical exam, progress note, review of laboratory and diagnostic data, preparation of discharge documents and prescriptions, and discussions about the pt's hospital course and discharge plan
with the patient and other certified medical technician assistant involved in the patient's care.
Anticipated Discharge: Today
Subjective/Interval History
-
Date of Service: July 05, 2025
Patient states he still has right sided chest discomfort when coughing. No new complaints.
Objective Data
-
Labs:
Laboratory Results
07/05/25
07:59
WBC 8.7
Hgb 13.7
Hct 43.2
Plt Count 191
Sodium 138
Potassium 4.1
Chloride 103
Carbon Dioxide 24
BUN 29 H
Creatinine 1.4 H
Glucose 86
Calcium 8.7
Vital Signs:
Vital Signs
Temp Pulse Resp BP Pulse Ox
97.9 F 93 16 126/69 95
07/05/25 07:47 07/05/25 07:47 07/05/25 07:47 07/05/25 07:47 07/05/25 07:47
I&O
07/04/25 07/05/25 07/06/25
06:59 06:59 06:59
Intake Total 240 / 240 730 / 730
Output Total 500 / 500 750 / 750
Balance -260 / -260 -20 / -20
[2025-07-05 11:34] VITALS: BP 120/77
--- NOTE | 2025-07-05 12:17 | W.DCSUMMARY ---
Discharge Summary
Discharge Data
Date of Admission: 07/04/25
Date of Discharge: 07/05/25
-
Pending Results: No
Hospital Course
Primary diagnoses:
Acute right sided pneumonia
Secondary diagnoses:
Essential hypertension
Coronary artery disease
Peripheral arterial disease
Chronic kidney disease 3a
Tobacco abuse disorder
Permanent atrial fibrillation
Chronic heart failure with mildly reduced ejection fraction
Consults:
Cardiology
Imaging:
CXR 07/03:
1. Mild ground-glass opacity in the right upper and lower lobes. Diagnostic possibilities are (1) infectious pneumonia or (2) mild alveolar pulmonary edema.
2. Mild to moderate cardiomegaly.
CXR 07/05: Improving right lung pneumonia.
Hospital course: 80-year-old male who presented with a chief complaint of cough as outlined in the H&P done on admission. Imaging above. COVID/Flu NEG, Legionella and streptococcal urinary antigens negative. He had no leukocytosis and was
saturating well on room air. He had one temperature of 100.2 �F. He was treated with Rocephin and azithromycin. He was discharged on Augmentin and doxycycline.
Discharge Plan
-
Patient Disposition: Home (Routine Discharge)
Discharge Diagnosis/Procedures: Acute right-sided pneumonia
Condition: Good
Diet: Restrict fluids to 64 oz and Other diet
Additional Diets: heart healthy
Activity: As tolerated
Driving Restrictions: As prior to admission
Blood Work: BMP and CBC in 1 week, prescription from PCP
Others Tests: Chest x-ray in 4 to 6 weeks
Specialty Instructions: Weigh Daily- Call MD for wt gain/loss 3 lbs overnight/5 lbs in 1 week
Instructions: *PCP/Other Adjunct Sociology Professor Heart Failure Instructions
Referrals:
Jay Bahena MD [Active, Cardiology] - in two to three weeks
UNKNOWN - PT DOES,NOT KNOW [Family Provider] - in less than 1 week
Prescriptions:
New
doxycycline hyclate 100 mg Capsule
100 mg PO Q12 Qty: 11 0RF
furosemide 20 mg Tablet
20 mg PO DAILY Qty: 30 0RF
amoxicillin-pot clavulanate 875-125 mg Tablet
1 tab PO Q12 Qty: 11 0RF
dapagliflozin propanediol 10 mg Tablet
10 mg PO DAILY Qty: 30 0RF
dextromethorphan-guaifenesin 10-100 mg/5 mL Syrup
5 ml PO Q6HPRN PRN (Reason: cough) Qty: 0 0RF
Continued
Eliquis 5 mg Tablet
5 mg PO BID
clopidogrel 75 mg Tablet
75 mg PO DAILY Qty: 90 3RF
bisoprolol fumarate 5 mg Tablet
5 mg PO DAILY
rosuvastatin 10 mg Tablet
10 mg PO DAILY
acetaminophen [Tylenol Arthritis Pain] 650 mg Tablet Extended Release
1,300 mg PO Q12H
perindopril erbumine 8 mg Tablet
8 mg PO DAILY Qty: 90 0RF
Rx Instructions:
3 weeks ago
Discharge Orders:
Discharge Patient (As Directed); Ordered 07/05/25
Ordered By: John Colón
Discharge Date and Time
Print Language: Togolese
--- NOTE | 2025-07-05 12:38 | CM ---
Patient and seen at bedside in [address] [place] [address]. Patient asking medical questions. CM with assembler chassis requested physician to review patient questions. Physician indicated that he had done so via assembler chassis earlier. Patient requested VN;
CM requested consult for VN and will [facility] pending physician consult. CM will continue to follow for discharge planning needs.
Plan; home with VN; pending physician consult and acceptance of referral.
[2025-07-05] MEDS: VIBRAMYCIN 100 MG PO (13:01)
[2025-07-05] MEDS: AUGMENTIN 875 MG/125 MG 1 TABLET PO (13:01)
== END 2025-07-05 14:37 | disposition home or self-care (01) | DRG 291 ==
LOC: 2 NORTH 00:56
PROVIDERS: Emergency Medicine; Physician Assistant; ADMITTING PHYSICIAN Internal Medicine; ATTENDING PHYSICIAN Internal Medicine; CONSULT PHYSICIAN Internal Medicine; EMERGENCY PHYSICIAN Student in an Organized Health Care Education/Training Program
DX: I13.0 Hypertensive heart and chronic kidney disease with heart failure and stage 1 through stage 4 chronic kidney disease, or unspecified chronic kidney disease (principal); J18.9 Pneumonia, unspecified organism; I50.22 Chronic systolic (congestive) heart failure; I48.21 Permanent atrial fibrillation; N18.31 Chronic kidney disease, stage 3a; I73.9 Peripheral vascular disease, unspecified; I25.10 Atherosclerotic heart disease of native coronary artery without angina pectoris; F17.200 Nicotine dependence, unspecified, uncomplicated; Z95.5 Presence of coronary angioplasty implant and graft; Z95.820 Peripheral vascular angioplasty status with implants and grafts; E78.00 Pure hypercholesterolemia, unspecified; Z79.01 Long term (current) use of anticoagulants; Z79.02 Long term (current) use of antithrombotics/antiplatelets; I25.2 Old myocardial infarction; Z79.899 Other long term (current) drug therapy; Z11.52 Encounter for screening for COVID-19
CPT/HCPCS: 71046; 80048; 80053; 83735; 83880; 84145; 84484; 85025; 85027; 87449; 87502; 87811; 87899; 93005; 96374; 99285